=== PATIENT | female | born 1985 | race Caucasian/White ===

== ENCOUNTER → 2017-12-17 18:39 | Outpatient (CLI) | payer OTHER, SELFPAY ==
--- NOTE | 2017-12-17 | DI.MRI.S_ITS ---
PROCEDURE: MR LUMBAR SPINE WO CON INDICATIONS: LUMBAR REGION RADICULOPATHY TECHNIQUE: Noncontrast sagittal T1 spin echo and T2 fast echo, sagittal STIR, axial T1 and T2 fast spin echo through the lumbar spine. In cases with scoliosis, additional coronal T2 fast spin echo may be performed. COMPARISON: None. FINDINGS: Image quality: Excellent. Alignment and Curvature: There is normal bony alignment. Bone Marrow: Benign, intraosseous hemangioma noted in the L2 vertebral body.. No acute vertebral body compression fractures. Spinal Cord: Conus medullaris terminates at the L1 level. Visualized cord demonstrates normal signal and size. Paraspinous Soft Tissues: No paravertebral masses. L1-L2: Normal appearance. L2-L3: Normal appearance. L3-L4: Normal appearance. L4-L5: Normal appearance. L5-S1: Loss of disc signal. Mild, diffuse disc bulge. Small central disc protrusion superimposed on diffuse disc bulge. Mild left facet hypertrophy No central stenosis. Moderate to severe left subarticular neural foraminal narrowing secondary to disc and facet disease with slight flattened deformity exiting left L5 nerve root. IMPRESSION: 1. Mild L5-S1 degenerative disc disease. 2. Mild left L5-S1 facet arthropathy. 3. No central stenosis. 4. Moderate to severe left L5-S1 subarticular neural foraminal narrowing. 5. Slight flattened deformity of the exiting left L5 nerve root. Please correlate with clinical data. Dictated by: Elaine Henry MD, PhD on 12/20/2017 at 9:29 Approved by: Elaine Henry MD, PhD on 12/20/2017 at 9:33
== END ==
PROVIDERS: PCP General Practice; Visit Provider General Practice
DX: M51.17 Intervertebral disc disorders with radiculopathy, lumbosacral region (principal); M47.27 Other spondylosis with radiculopathy, lumbosacral region; M48.07 Spinal stenosis, lumbosacral region
CPT/HCPCS: 72148

== ENCOUNTER 2020-01-26 12:26 | Emergency (ER) | payer OTHER, SELFPAY ==
[2020-01-26 12:49] VITALS: BP 130/78; PULSE 59; RESP 14; TEMP 37.1; O2SAT 97; BMI 25.8
--- NOTE | 2020-01-26 13:05 | ED.SKABFB ---
HPI - Skin/Abscess/Foreign Bdy <ARMAAN Schrader - Last Filed: 01/26/20 15:33> General Chief complaint: Skin/Abscess/Foreign Body Stated complaint: states rash x3 wks Time Seen by Provider: 01/26/20 12:43 Source: patient Mode of arrival: Ambulatory Limitations: no limitations History of Present Illness HPI narrative: The patient is a 34-year-old female nonsmoker who presents with a chief complaint of a rash ongoing for the past 3 weeks. She states that [place] and went to [facility] a few days ago, she has tried steroid creams, antifungal cream, she is currently taking Benadryl 25 mg b.i.d. to t.i.d., she is on a dexamethasone prescription, as well as a famotidine prescription. She denies any fevers nausea vomiting or diarrhea. She states that the rash started around her breast, now has been extending down her arms and her back. She states it is incredibly itchy. She states that her primary care provider has put through a referral to Dermatology, but she is not able to follow-up with them until next week. She does wonder if she can see a water supply engineer here in the emergency department. She denies any fevers nausea vomiting or diarrhea. Related Data Previous Rx's Medication Instructions Recorded hydroxyzine HCl 50 mg PO TID PRN #14 tab 01/26/20 Allergies Allergy/AdvReac Type Severity Reaction Status Date / Time No Known Drug Allergies Allergy Verified 01/26/20 12:49 Review of Systems <ARMAAN Schrader - Last Filed: 01/26/20 15:33> Review of Systems Narrative: GENERAL: Denies chills, fatigue, malaise, fever, sweats. HEENT: Denies sinus pain, ear pain, sore throat, difficulty swallowing, dizziness. RESPIRATORY: Denies dyspnea, cough, wheezing, hemoptysis, sputum. CARDIOVASCULAR: Denies chest pain, palpitations, orthopnea, edema, GASTROINTESTINAL: Denies nausea, vomiting, abdominal pain, diarrhea, constipation, melena. : Denies dysuria, frequency, incontinence, hematuria, urinary retention. MUSCULOSKELETAL: denies weakness, joint pain, or bony pain SKIN: See HPI NEUROLOGIC: Denies weakness, headache, numbness, change in speech, confusion, seizures, incoordination. PSYCHIATRIC: No concerning psychosocial issues. 12 point review of systems is negative except for those stated above Patient History <Miriam MoralesARMAAN - Last Filed: 01/26/20 15:33> Social History Smoking Status: Unknown if ever smoked Smoking Status: Unknown if ever smoked alcohol intake frequency: holidays/special occasions only Substance Use Type: does not use Exam <Miriam MoralesARMAAN - Last Filed: 01/26/20 15:33> Narrative Exam Narrative: GENERAL: This is a well-nourished, well-developed patient, in no acute distress HEAD: Atraumatic. Normocephalic. No temporal or scalp tenderness. EYES: Pupils equal round and reactive. Extraocular motions intact. No scleral icterus. No injection or drainage. ENT: Nose without bleeding, purulent drainage or septal hematoma. Throat without erythema, tonsillar hypertrophy or exudate. Uvula midline. Airway patent. no oropharyngeal swelling noted. NECK: Trachea midline. No JVD or lymphadenopathy. Supple, nontender, no meningeal signs. CARDIOVASCULAR: Regular rate and rhythm RESPIRATORY: Clear to auscultation. Breath sounds equal bilaterally. No wheezes, rales, or rhonchi. no cough. No increased respiratory effort No accessory muscle use. GASTROINTESTINAL: Abdomen soft, non-tender, nondistended. No hepato-splenomegaly, or palpable masses. No guarding. Active bowel sounds all 4 quadrants. EXTREMITIES: No clubbing, cyanosis, or edema. No joint tenderness, effusion, or edema noted. BACK: Nontender without deformity or crepitance. NEURO: AOx3. SKIN: Slightly erythematous raised rash bilateral arms, lower back trauma across mid back. No hives, no crusting or vesicles noted. Initial Vital Signs Initial Vital Signs: Vital Signs Temperature 98.8 F 01/26/20 12:49 Pulse Rate 59 L 01/26/20 12:49 Respiratory Rate 14 01/26/20 12:49 Blood Pressure 130/78 01/26/20 12:49 Pulse Oximetry 97 01/26/20 12:49 <Romy Leonard DO - Last Filed: 01/27/20 08:15> Initial Vital Signs Initial Vital Signs: Vital Signs Temperature 98.8 F 01/26/20 12:49 Pulse Rate 59 L 01/26/20 12:49 Respiratory Rate 14 01/26/20 12:49 Blood Pressure 130/78 01/26/20 12:49 Pulse Oximetry 97 01/26/20 12:49 Scores <ARMAAN Schrader - Last Filed: 01/26/20 15:33> GCS Calvin coma scale eye opening: Spontaneous Calvin coma scale verbal response: Orientated Calvin coma scale motor response: Obey commands Calvin coma scale total score: 15 Course <ARMAAN Schrader - Last Filed: 01/26/20 15:33> Orders Ordered: ED Orders 01/26/20 13:37 Consult to [facility] Dental Laboratory Assistant Stat Vital Signs Vital signs: Vital Signs - 8 hr 01/26/20 12:49 01/26/20 13:32 01/26/20 15:13 Temperature 98.8 F Pulse Rate 59 L 66 46 L Respiratory Rate 14 16 18 Blood Pressure 130/78 118/70 112/67 Pulse Oximetry 97 98 97 <Romy Leonard DO - Last Filed: 01/27/20 08:15> Orders Ordered: ED Orders [facility]/26/20 [facility] Vital Signs Vital signs: Vital Signs - 8 hr 01/26/20 12:49 01/26/20 13:32 01/26/20 15:13 Temperature 98.8 F Pulse Rate 59 L 66 46 L Respiratory Rate 14 16 18 Blood Pressure 130/78 118/70 112/67 Pulse Oximetry 97 98 97 MDM - Skin/Abscess/Foreign Bdy <ARMAAN Schrader - Last Filed: 01/26/20 15:33> MDM Narrative Medical decision making narrative: The patient is a 34-year-old female presents with a chief complaint of a rash that is continued despite multiple therapies including steroids, antifungals, antihistamines. I discussed at length using hydroxyzine 3 times a day, rather than Benadryl to help with the itch. She does have an appointment her primary care provider on Wednesday. Recommended continuing steroids etcetera as previously prescribed. The patient does tear up, state that she was recently on Wednesday and wonders if that might be contributing. She denies any thoughts of hurting herself or anybody else, but would like some resources so she was seen and evaluated by Olu HERNANDEZ. I did discussed at length follow up with primary care provider, avoiding possible triggers, and come back to the ER for any acute concerns such as difficulty breathing shortness of breath etcetera. The patient appears to have no signs of systemic illness or systemic involvement at this point time. She has been hemodynamically stable and nontoxic appearing throughout her stay in the ER. Discharge Plan Departure Patient Disposition: Home Clinical Impression: Rash and nonspecific skin eruption Discharge Date/Time: 01/26/20 15:15 Instructions: DI for Rash Activity Restrictions/Additional Instructions: Thank you for trusting us with your care today. As discussed, I sent a prescription of hydroxyzine to [facility] in [place]. please continue the prescriptions given to the other emergency department. I suggest insuring that you are hydrating your skin well with Eucerin or Aquaphor from a tub. please avoid lotions that come for pump bottles as these tend to have high water content which can be dehydrating. Please take this every 6-8 hours as needed. Do not combine with Benadryl. Be aware it can be sedating. Please come back to emergency department for any acute concerns. Please follow-up with primary care provider in the next few days. As discussed with Olu HERNANDEZ, please refer to [employer] regarding counselors that taking your insurance in your area Prescriptions: New hydroxyzine HCl 50 mg tablet 50 mg PO TID PRN (Reason: itching) Qty: 14 RF: 0 Referrals: [facility] [Provider Group] Tab Barger MD [Primary Care Provider] - Stand Alone Forms: School Release Note, Work Release Note <Romy Leonard DO - Last Filed: 01/27/20 08:15> Cosign ED Attending Olgaature Attestation: I was immediately available in the department for consultation. Documentation has been reviewed. I agree with assessment and plan.
[2020-01-26 13:32] VITALS: BP 118/70; PULSE 66; RESP 16; O2SAT 98
--- NOTE | 2020-01-26 14:38 | CM.SWNOTE ---
YOUTH LEADER Assessment YOUTH LEADER - [employer] Team Member Assessment YOUTH LEADER - [employer] Team Member Assessment Start: 01/26/20 14:22 Freq: Status: Active Protocol: Document 01/26/20 14:23 BENY (Rec: 01/26/20 14:38 BENY [id number]) YOUTH LEADER/[employer] Team Member Assessment Time Spent with Patient Start date 01/26/20 Visit Start Time 13:50 End date 01/26/20 Visit End Time 14:20 Total time Care Management spent on 30 patient visit-in minutes Mental Health Screening Include Onset, Duration, Intensity Presenting Problem Patient presents to ED for rash that has spread throughout her body over past 3 weeks. During conversation with provider, patient reports multiple significant life stressors prompting YOUTH LEADER consult. Precipitating Event(s) Patient has had rash for 3 weeks, seen multiple providers , and the rash has not resolved. Patient had a court date on that finalized her divorce . Patient is in the [employer], is in school to become a PA, and had volunteer obligations and feels as though she can't get everything done. Patient Strengths Patient appears highly motivated by her career and education goals. Current Behavioral Health Provider(s) None current. Include Facility, Provider, Ph. # Psych. Hx Mental Health and Chemical Patient reports hx of anxiety Dependency and panic attacks and states she has seen many counselors at different points in her life. Patient reports she is currently experiencing constant panic attacks, and that she experiences them mostly during times of stress. No CRAIG/ETOH concerns reported. 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 Patient is very recently and is living with 3 men who she states are nice, but basically frat boys. Patient reports she has limited social support as many of her friends have transferred to different spots in the . Patient reports one of her roommates is very supportive during times of panic and states that her dog is a therapeutic presence for her as well. 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 Legal Concerns Legal Matters - Outstanding Issues None. Mental Status Orientation (Person/Place/Time) Oriented x3 Stated Mood ok Affect (Congruent with Mood?) euthymic, normal range, congruent with mood. Thought Content - Specify/Describe No hallucinations, obsessions, Obsessions, Delusions, Hallucinations or delusions observed or reported. Thought Processes (Sndmgip-Sbjlygwp-Fmoi Logical-Goal directed Nxkhqczx-Dtecwyes-Wczyqsstxq- Cbldbvqngdfaro-Cgfsdzm-Dgbbtsxfevtb- Thought Blocking) Speech (Gvtkhv-Ndfs-Lgpyqry-Rapid-Soft- Normal Loud-Pressured) Motor (Ydmoxw-Jmggaozpm-Iiwk-Other) Normal Insight (Szvf-Avmx-Fgwd/Limited) Good Judgement (Ijcv-Unvx-Smyj/Limited) Good Impulse Control (Adequate-Impaired) Adequate Memory (Qveaqslgv-Bygsad-Uhsydc, Intact for interview, not Impaired-Intact) formally assessed. Concentration (Intact-Impaired) Intact Attention (Intact-Impaired) Intact Behavior (Appropriate-Inappropriate) Appropriate. Risk Assessment Suicidal Ideation (Plan) No Homicidal Ideation (Plan) No Comment Patient denies SI/HI. Intervention Intervention YOUTH LEADER meets with patient. Patient describes several significant life stressors and explains that she feels she does not have enough time to complete her obligations. YOUTH LEADER and patient discuss counseling and patient reports negative experiences through providers, but [place] YOUTH LEADER introduces idea of patient looking for provider through [employer], as patient would be able to filter by insurance. Patient denies other needs for YOUTH LEADER at this time. YOUTH LEADER updates ED Provider Miriam Morales, who states she will put website in d/c notes. Plan RA Plan Patient to D/C after stay in ED. MARY Hayes
[2020-01-26 15:13] VITALS: BP 112/67; PULSE 46; RESP 18; O2SAT 97
== END 2020-01-26 15:15 | disposition home or self-care (01) ==
PROVIDERS: Emergency Provider Nurse Practitioner Family; PCP General Practice
DX: R21 Rash and other nonspecific skin eruption (principal)
CPT/HCPCS: 99281